=== PATIENT | female | born 1975 | race Two or more races ===

== ENCOUNTER 2022-02-18 12:05 | Emergency (ER) | payer MEDICAID ==
[~2022-02-18] VITALS: Ht 157.5 cm; Wt 60.0 kg
[2022-02-18 20:26] LABS: CHLORIDE 104 mEq/L (98-107)
[2022-02-18 20:35] LABS: HCG SCREEN NEGATIVE
[2022-02-18 20:36] LABS: BASOPHILS % 0.7 % (0.0-2.0); EOSINOPHILS % 5.1 % (0.0-5.0); HEMATOCRIT. 37.9 % (36.0-48.0); HEMOGLOBIN. 12.8 g/dL (12.0-16.0); LYMPHOCYTES % 28.4 % (20.0-50.0); MEAN CORPUSCULAR HEMOGLOBIN 29.4 pg (28.0-32.0); MEAN CORPUSCULAR VOLUME 87.4 fL (81.0-99.0); MEAN PLATELET VOLUME 7.6 fl (7.4-10.4); MONOCYTES % 6.2 % (2.0-8.0); NEUTROPHILS % 59.6 % (40.0-76.0); PLATELET 300 x1000/uL (130-400); RED BLOOD CELL COUNT 4.33 mill/uL (4.2-5.4); RED CELL DISTRIBUTION WIDTH 13.9 % (11.6-14.6)
[2022-02-18 23:38] LABS: CLARITY URINE CLEAR (CLEAR); COLOR URINE YELLOW (YELLOW); KETONES URINE NEGATIVE (NEGATIVE); LEUKOCYTE ESTERASE URINE 2+ (NEGATIVE); NITRITE URINE NEGATIVE (NEGATIVE); OCCULT BLOOD URINE NEGATIVE (NEGATIVE); PROTEIN URINE NEGATIVE (NEGATIVE)
[2022-02-18 23:45] VITALS: BP 139/78
[2022-02-18] MEDS ORDERED: ACETAMINOPHEN 325MG TABLET PO ONE (23:45)
[2022-02-18] MEDS ORDERED: IBUPROFEN 400MG TABLET PO ONE (23:45)
[2022-02-19] MEDS ORDERED: NITR-87 MT (02:13)
[2022-02-19] MEDS ORDERED: ACET-2708 MT (02:22)
[2022-02-19] MEDS ORDERED: IBUP-2028 MT (02:22)
== END 2022-02-19 04:07 | disposition home or self-care (01) ==
LOC: ER 13:18
DX: M54.50 Low back pain, unspecified (principal)
CPT/HCPCS: 36415; 74176; 80053; 81003; 81025; 83605; 84703; 85025; 99284

== ENCOUNTER 2025-01-31 10:41 | Emergency (ER) | payer MEDICAID ==
[~2025-01-31] VITALS: Ht 154.9 cm; Wt 66.3 kg
[~2025-01-31 10:41] MED LIST: ACET-2708 MT; IBUP-2028 MT; NITR-87 MT
[2025-01-31 10:50] VITALS: TEMP 36.6; O2SAT 98
[2025-01-31 10:53] VITALS: O2SAT 97
[2025-01-31 11:32] LABS: BASOPHILS % 1.3 % (0.0-2.0); EOSINOPHILS % 4.0 % (0.0-5.0); HEMATOCRIT. 37.7 % (36.0-48.0); HEMOGLOBIN. 12.6 g/dL (12.0-16.0); LYMPHOCYTES % 30.6 % (20.0-50.0); MEAN PLATELET VOLUME 7.7 fl (7.4-10.4); MONOCYTES % 7.2 % (2.0-8.0); NEUTROPHILS % 56.9 % (40.0-76.0); PLATELET 277 x1000/uL (130-400); RED BLOOD CELL COUNT 4.31 mill/uL (4.2-5.4); RED CELL DISTRIBUTION WIDTH 13.7 % (11.6-14.6)
[2025-01-31 11:46] LABS: CREATININE 0.7 mg/dL (0.6-1.0); UREA NITROGEN BLOOD 16 mg/dL (9-23)
[2025-01-31 11:48] LABS: ASPARTATE AMINOTRANSFERASE 17 IU/L (<34); BILIRUBIN DIRECT 0.2 mg/dL (<=3.0); BILIRUBIN TOTAL 0.8 mg/dL (0.1-1.0)
[2025-01-31 11:49] LABS: PROTEIN TOTAL 6.9 g/dL (6.0-8.3)
[2025-01-31 12:05] LABS: CLARITY URINE CLEAR (CLEAR); COLOR URINE YELLOW (YELLOW); GLUCOSE URINE NEGATIVE (NEGATIVE); KETONES URINE NEGATIVE (NEGATIVE); LEUKOCYTE ESTERASE URINE 2+ (NEGATIVE); NITRITE URINE NEGATIVE (NEGATIVE); OCCULT BLOOD URINE TRACE (NEGATIVE); PH URINE 5.5 (4.5-8.0); PROTEIN URINE NEGATIVE (NEGATIVE); SPECIFIC GRAVITY URINE 1.022 (1.005-1.030); UROBILINOGEN URINE 0.2 E.U./dL (0.2-1.0)
[2025-01-31 12:14] LABS: BACTERIA URINE TRACE; RBC URINE 0-2 /hpf (0-2); SQUAMOUS EPITHELIAL CELL URINE 3+ /lpf (RARE/1+); YEAST URINE NONE SEEN
[2025-01-31 14:36] VITALS: BP 137/77; PULSE 55; RESP 18
[2025-01-31] MEDS: KETOROLAC 30MG/ML VIAL IM ONE (14:36)
[2025-01-31] MEDS: ACETAMINOPHEN 325MG TABLET PO ONE (14:36)
[2025-01-31] MEDS ORDERED: IBUP-2028 MT (18:14)
[2025-01-31] MEDS ORDERED: HYDR-4001 MT ×2 (18:14→18:15)
== END 2025-01-31 18:38 | disposition home or self-care (01) ==
LOC: ER 10:41
DX: R10.32 Left lower quadrant pain (principal); Z97.5 Presence of (intrauterine) contraceptive device
CPT/HCPCS: 99285; 74176; 80076; 80048; 81003; 81025; 83690; 85025; 36415; 96372; J1885